=== PATIENT | male | born 1995 | race Caucasian/White ===

== ENCOUNTER 2024-08-12 02:23 | Emergency (ER) | payer MEDICAID ==
[~2024-08-12] VITALS: Ht 190.5 cm; Wt 81.6 kg
[~2024-08-12 02:23] MED LIST: DOXY100C5 PO
[2024-08-12 02:26] VITALS: O2SAT 98
[2024-08-12] MEDS ORDERED: BICT1TAB PO (02:49)
[2024-08-12] MEDS ORDERED: BUPR1FIL3 SL (02:51)
[2024-08-12] MEDS ORDERED: NAPR-1009 PO (02:51)
[2024-08-12] MEDS: NAPROXEN 500 MG TABLET PO ONE (03:02)
[2024-08-12] MEDS: BUPRENORPHINE HCL 2 MG TAB.SUBL SL ONE (03:05)
== END 2024-08-12 03:12 | disposition home or self-care (01) ==
LOC: ER 02:27
DX: R07.81 Pleurodynia (principal); R03.0 Elevated blood-pressure reading, without diagnosis of hypertension; F11.23 Opioid dependence with withdrawal; F31.9 Bipolar disorder, unspecified; F19.10 Other psychoactive substance abuse, uncomplicated; F15.10 Other stimulant abuse, uncomplicated; Z60.2 Problems related to living alone; Z88.0 Allergy status to penicillin; Z76.0 Encounter for issue of repeat prescription; Z59.00 Homelessness unspecified
CPT/HCPCS: A4606; A4663